=== PATIENT | male | born 2000 | race Hispanic/Latino ===

== ENCOUNTER 2021-07-28 23:36 | Emergency (ER) | payer OTHER ==
[~2021-07-28] VITALS: Ht 162.6 cm; Wt 61.7 kg
[2021-07-28 23:37] VITALS: BP 120/70
[2021-07-29] MEDS ORDERED: RABIES IMMUNE GLOBULIN 1500 INTERNATIONAL UNIT/5ML VIAL (90375) IM ONE (00:20)
[2021-07-29] MEDS ORDERED: RABIES VACCINE HUMAN 2.5 INTERNATIONAL UNITS/ML VIAL (90675) IM ONE (00:20)
[2021-07-29] MEDS ORDERED: AMOX875T2 PO (00:48)
[2021-07-29] MEDS ORDERED: AUGMENTIN 875 MG TAB PO ONE (00:55)
== END 2021-07-29 01:12 | disposition home or self-care (01) ==
LOC: M ED 23:36
DX: S31.813A Puncture wound without foreign body of right buttock, initial encounter (principal); W54.0XXA Bitten by dog, initial encounter; Y92.481 Parking lot as the place of occurrence of the external cause; Z20.3 Contact with and (suspected) exposure to rabies

== ENCOUNTER 2021-08-01 12:17 | Emergency (ER) | payer OTHER ==
[~2021-08-01] VITALS: Ht 162.6 cm; Wt 62.4 kg
[~2021-08-01 12:17] MED LIST: AMOX875T2 PO
[2021-08-01] MEDS ORDERED: RABIES VACCINE HUMAN 2.5 INTERNATIONAL UNITS/ML VIAL (90675) IM ONE (12:50)
[2021-08-01 14:18] VITALS: BP 115/72
== END 2021-08-01 14:19 | disposition home or self-care (01) ==
LOC: M ED 12:17
DX: Z23 Encounter for immunization (principal); Z20.3 Contact with and (suspected) exposure to rabies

== ENCOUNTER 2021-08-05 14:32 | Emergency (ER) | payer OTHER ==
[~2021-08-05] VITALS: Ht 162.6 cm; Wt 59.1 kg
[2021-08-05 14:55] VITALS: BP 114/68
[2021-08-05] MEDS ORDERED: RABIES VACCINE HUMAN 2.5 INTERNATIONAL UNITS/ML VIAL (90675) IM ONE (15:30)
== END 2021-08-05 16:36 | disposition home or self-care (01) ==
LOC: M ED 14:32
DX: Z23 Encounter for immunization (principal); Z20.3 Contact with and (suspected) exposure to rabies

== ENCOUNTER 2021-08-12 16:15 | Emergency (ER) | payer OTHER ==
[~2021-08-12] VITALS: Ht 162.6 cm; Wt 61.2 kg
[2021-08-12 16:16] VITALS: BP 108/57
[2021-08-12] MEDS ORDERED: RABIES VACCINE HUMAN 2.5 INTERNATIONAL UNITS/ML VIAL (90675) IM ONE (16:50)
== END 2021-08-12 17:42 | disposition home or self-care (01) ==
LOC: M ED 16:15
DX: Z23 Encounter for immunization (principal); Z20.3 Contact with and (suspected) exposure to rabies

== ENCOUNTER 2022-07-03 07:09 | Emergency (ER) | payer OTHER ==
[~2022-07-03] VITALS: Ht 162.6 cm; Wt 61.4 kg
[2022-07-03 08:16] LABS: RSV AMPLIFICATION NEGATIVE (NEGATIVE)
[2022-07-03] MEDS ORDERED: MUCI600T31 PO (08:23)
[2022-07-03 08:52] VITALS: BP 124/76
== END 2022-07-03 08:59 | disposition home or self-care (01) ==
LOC: M ED 07:09
DX: U07.1 COVID-19 (principal); J06.9 Acute upper respiratory infection, unspecified; Z79.810 Long term (current) use of selective estrogen receptor modulators (SERMs)